=== PATIENT | male | born 1960 | race Caucasian/White ===

== ENCOUNTER 2021-06-20 09:21 | Emergency (ER) | payer MEDICARE, SELFPAY ==
--- NOTE | ~2021-06-20 | XR_ITS ---
EXAMINATION: XR ribs LT 2V w CXR 2V DATE: 06/20/2021 10:13 INDICATION: Left posterior chest wall pain post fall in shower. TECHNIQUE: Frontal and lateral views of the chest and 3 views of the left ribs were obtained. COMPARISON: None FINDINGS: No rib fractures identified. A couple bilateral small calcified pulmonary nodules consistent with old granulomatous disease. No other airspace opacities, pulmonary edema, pleural effusion or pneumothora x. The cardiomediastinal silhouette is normal. Coronary artery stenting. Tortuous thoracic aorta. Alberto kruse visualized abdominal aortic endoluminal stent graft in the upper abdomen. Lower cervical anter ior spinal fusion with anterior plate and screw fixation. IMPRESSION: 1. No rib fracture or acute cardiopulmonary disease. Reviewed, dictated and finalized at location A.
--- NOTE | ~2021-06-20 | XR_ITS ---
EXAMINATION: XR abdomen/kub 1V DATE: 06/20/2021 10:42 INDICATION: Constipation. TECHNIQUE: A supine view of the abdomen on 2 radiographs was obtained. COMPARISON: None. FINDINGS: There are no dilated loops of bowel. There is a moderate volume of stool in the colon. Ther e is a stent graft in abdominal aorta and the common iliac arteries. There is an embolization coil in left internal iliac artery. There are bilateral total hip arthroplasties. IMPRESSION: 1. Nonobstructive bowel gas pattern. Reviewed, dictated and finalized at location A.
--- NOTE | 2021-06-20 09:39 | ED.GENADULT ---
HPI - General Adult General Chief complaint: Fall Stated complaint: Fall Injury/ Rib Pain Time Seen by Provider: 06/20/21 09:56 Source: patient and RN notes reviewed Mode of arrival: ambulatory Limitations: no limitations History of Present Illness HPI narrative: 61-year-old male presents with concern for fall and rib pain. Saturday he fell in the shower hitting his left side on the bathtub. He reports lateral lower rib pain. Reports pain worsens with coughing, moving his left arm. He also reports mild abdominal discomfort and has not had a bowel movement since his fall. He reports he usually has daily bowel movements. He denies nausea, vomiting, diarrhea. He denies bruising, redness, open skin MD complaint: Rib pain Related Data Home Medications Medication Instructions Recorded Confirmed alprazolam 0.5 mg PO DAILY 06/20/21 06/20/21 aspirin 81 mg PO DAILY 06/20/21 06/20/21 carvedilol 25 mg PO DAILY 06/20/21 06/20/21 citalopram 40 mg PO DAILY 06/20/21 06/20/21 isosorbide mononitrate 120 mg PO DAILY 06/20/21 06/20/21 lamotrigine 100 mg PO DAILY 06/20/21 06/20/21 omeprazole 20 mg PO DAILY 06/20/21 06/20/21 rosuvastatin 40 mg PO DAILY 06/20/21 06/20/21 trazodone 150 mg PO DAILY 06/20/21 06/20/21 Allergies Allergy/AdvReac Type Severity Reaction Status Date / Time cephalexin Allergy Hives Verified 06/20/21 10:48 niacin Allergy Flushing Verified 06/20/21 10:48 Sulfa (Sulfonamide Allergy Hives Verified 06/20/21 10:48 Antibiotics) sulfamethoxazole Allergy Hives Verified 06/20/21 10:48 [From Bactrim] trimethoprim [From Bactrim] Allergy Hives Verified 06/20/21 10:48 Review of Systems Review of Systems: CONSTITUTIONAL: Denies malaise, chills, sweats, or fever. CARDIOVASCULAR: Denies chest pain, palpitations, or edema. RESPIRATORY: Denies cough or dyspnea. Reports left lateral chest wall pain with deep breathing and coughing GASTROINTESTINAL: Reports abdominal discomfort with constipation. Denies nausea, vomiting, diarrhea, bloody, or mucous stools. GENITOURINARY: Denies dysuria or hematuria. SKIN: Denies bruising, redness MUSCULOSKELETAL: Reports left lateral rib pain All systems reviewed & are unremarkable except as noted in HPI and below PMFSH Comments At time of signature, agree with nursing past medical, surgical, social and family history. There is no relevant family history pertinent to the presenting complaint Exam Narrative: GENERAL: Well-appearing, well-nourished, and in no acute distress. HEAD: Normocephalic, atraumatic. EYES: PERRLA, sclera clear ENT: Nares clear. Mucous membranes moist. NECK: Supple. CHEST: No respiratory distress. Clear to auscultation. No bony deformities, no asymmetry. Speaks in full sentences. HEART: Regular rate and rhythm. No murmur heard. Normal peripheral pulses. ABDOMEN: Soft, nondistended, normal active bowel sounds, no palpable masses. Mild left lower abdominal discomfort with palpitation SKIN: Warm, dry, no visible rash, no ecchymosis, edema or erythema noted NEURO: Alert and oriented x3. PSYCH: Normal mood and affect Course Course Emergency Course: Patient is aware of diagnosis, understands and agrees to treatment plan. Anticipatory guidance given. Patient agrees to follow-up as directed and is aware of reasons to seek care at the emergency department. Portions of this record may have been created with voice recognition software Vital Signs Vital signs: Reviewed. Medical Decision Making MDM Narrative Medical decision making narrative: Patients injury and pain is consistent with musculoskeletal etiology. No signs of neurological or vascular compromise on exam. Compartments and tissues are soft without signs of compartment syndrome. Pain is felt appropriate for further evaluation on an outpatient basis. Imaging Data My impression: Images reviewed, interpreted by radiologist, agree, see report. Radiologist's impression: EXAMINATION: XR ribs LT 2V w CXR 2V DATE:
[2021-06-20 09:42] VITALS: BP 138/74; PULSE 60; RESP 14; TEMP 36.7; O2SAT 98
== END 2021-06-20 11:03 | disposition home or self-care (01) ==
PROVIDERS: Emergency Provider Nurse Practitioner; PCP Internal Medicine
DX: S29.9XXA Unspecified injury of thorax, initial encounter (principal); W18.2XXA Fall in (into) shower or empty bathtub, initial encounter; K59.00 Constipation, unspecified; I25.10 Atherosclerotic heart disease of native coronary artery without angina pectoris; E78.00 Pure hypercholesterolemia, unspecified; I10 Essential (primary) hypertension; Z96.643 Presence of artificial hip joint, bilateral
CPT/HCPCS: 71046; 71100; 74018; 99213; G0463